=== PATIENT | male | born 1985 | race Caucasian/White ===

== ENCOUNTER 2017-12-08 10:09 | Emergency (ER) | payer SELFPAY ==
[~2017-12-08] VITALS: Ht 175.3 cm; Wt 76.0 kg
[~2017-12-08 10:09] MED LIST: AMOX875T PO; CHLO.12%30 SSP; IBUP800T23 PO; TRAM50 PO
[2017-12-08 10:11] VITALS: BP 124/65; PULSE 58; RESP 16; TEMP 97.8; O2SAT 97
[2017-12-08] MEDS ORDERED: oxyCODONE/ACETAMINOPHEN 5 MG/325 MG TAB PO ONE (10:30)
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
[2017-12-08] MEDS ORDERED: IBUP-232 PO (11:40)
[2017-12-08] MEDS ORDERED: PERC5TAB12 PO (11:40)
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
[2017-12-08] MEDS ORDERED: HYDROmorphone HCL PF 2 MG/ML VIAL IV PUSH ONE (11:45)
[2017-12-08 12:27] VITALS: BP 134/69
[2017-12-08 12:40] VITALS: BP 131/69
== END 2017-12-08 12:30 | disposition home or self-care (01) ==
LOC: NEPD 10:09
DX: S42.022A Displaced fracture of shaft of left clavicle, initial encounter for closed fracture (principal); F17.200 Nicotine dependence, unspecified, uncomplicated; Z98.890 Other specified postprocedural states; V28.0XXA Motorcycle driver injured in noncollision transport accident in nontraffic accident, initial encounter; Y92.014 Private driveway to single-family (private) house as the place of occurrence of the external cause
CPT/HCPCS: 73000; 96374; 99284; J1170

== ENCOUNTER 2018-05-15 18:41 | Emergency (ER) | payer SELFPAY ==
[~2018-05-15] VITALS: Ht 175.3 cm; Wt 76.0 kg
[~2018-05-15 18:41] MED LIST changes: +IBUP-232 PO; +PERC5TAB12 PO
[2018-05-15 18:50] VITALS: BP 147/89; PULSE 88; RESP 17; TEMP 98.1; O2SAT 97
[2018-05-15 19:35] LABS: BILIRUBIN, URINE NEG (NEG); BLOOD, URINE NEG (NEG); GLUCOSE,URINE NEG (NEG); KETONE, URINE NEG (NEG); MUCUS URINE FEW /lpf (OCC); NITRITE,URINE NEG (NEG); URINE COLOR YELLOW (YELLW/STRAW); URINE LEUKOCYTE ESTERASE NEG (NEG)
--- NOTE | 2018-05-15 20:15 | PD ---
HPI Chief Complaint: Complaint Time Seen by Provider: 19:46 Travel History International Travel<30 days: No Contact w/Intl Traveler<30days: No Traveled to known affect area: No History of Present Illness HPI 32-year-old male presents to emergency department with complaint of burning on urination that has been on and off for 1 week. Denies penile discharge, penile pain. Denies testicular pain or swelling. Denies hematuria, urinary frequency. Denies STD exposure. Denies abdominal pain, fever, vomiting. Has not taken any medication or trying treatments to alleviate his symptoms. 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 No known aggravating or relieving factors. Symptoms are mild in severity. No primary care provider. No known allergies. Denies significant past medical history. Has no other medical complaints. No other modifying factors or associated signs and symptoms. PFSH Past Medical History Musculoskeletal: Yes (FOOT FRACTURE) Past Surgical History Genitourinary Surgery: Yes ( LETICIA HERNIA AND UMBILICAL HERNIA REPAIR AGE 7) Social History Alcohol Use: No Tobacco Use: Yes (2-3 packs a day.) Substance Use: Yes (Significant Hx; Alcohol, Nicotine, Cocaine, Benzos, Marijuanna.) Allergies-Medications (Allergen,Severity, Reaction): Coded Allergies: No Known Allergies (Verified , 09/25/14) Reported Meds & Prescriptions Reported Meds & Active Scripts Active Ibuprofen 600 Mg Tab 600 Mg PO Q8H PRN Percocet (Oxycodone-Acetaminophen) 5-325 mg Tab 2 Tab PO Q6H PRN Ultram (Tramadol HCl) 50 Mg Tab 1 Tab PO Q6 PRN FOR PAIN Ibuprofen 800 Mg Tab 800 Mg PO TID PRN Peridex Oral Rinse (Chlorhexidine Gluconate) 0.12 % Amy 15 Ml SSP BID 10 Days Amoxil (Amoxicillin) 875 Mg Tab 875 Mg PO BID 10 Days Review of Systems Except as stated in HPI: all other systems reviewed are Neg Physical Exam Narrative GENERAL: Well-nourished, well-developed male patient, in no acute distress SKIN: Warm and dry. No rash. HEAD: Atraumatic. Normocephalic. EYES: Pupils equal and round. No scleral icterus. No injection or drainage. ENT: Mucosa pink and moist. NECK: Trachea midline. CARDIOVASCULAR: Regular rate RESPIRATORY: No accessory muscle use. GASTROINTESTINAL: Abdomen soft, non-tender, nondistended. Hepatic and splenic margins not palpable. Bowel sounds are active 4 quadrants. Bladder nontender and nondistended. MUSCULOSKELETAL: No obvious deformities. No clubbing. No cyanosis. No edema. BACK: No CVA tenderness NEUROLOGICAL: Awake and alert. Oriented 3. No obvious cranial nerve deficits. Motor grossly within normal limits. Normal speech. Moves all extremities. 5/5 strength to all extremities. PSYCHIATRIC: Appropriate mood and affect; insight and judgment normal. Data Data Last Documented VS Vital Signs Date Time Temp Pulse Resp B/P (MAP) Pulse Ox O2 Delivery O2 Flow Rate FiO2 05/15/18 18:50 98.1 88 17 147/89 (108) 97 Orders Orders Urinalysis - C+S If Indicated (05/15/18 18:55) Gc And Chlamydia Pcr (05/15/18 19:47) Labs Laboratory Tests Test 05/15/18 19:00 Urine Color YELLOW Urine Turbidity CLOUDY Urine pH 5.0 Urine Specific [place] 1.030 Urine Protein NEG mg/dL Urine Glucose (UA) NEG mg/dL Urine Ketones NEG mg/dL Urine Occult Blood NEG Urine Nitrite NEG Urine Bilirubin NEG Urine Urobilinogen 4.0 OR GREATER mg/dL Urine Leukocyte Esterase NEG Urine Mucus FEW /lpf Microscopic Urinalysis Comment CULT NOT INDICATED MDM Medical Decision Making Medical Screen Exam Complete: Yes Emergency Medical Condition: Yes Medical Record Reviewed: Yes Differential Diagnosis Dysuria, UTI, dehydration, urethritis Narrative Course 32-year-old male with dysuria. He denies penile discharge, pain, testicular pain, swelling. No known exposure to STD. Urinalysis ordered in triage and is without signs of infection. Chlamydia and gonorrhea pending. Will wait for chlamydia and gonorrhea to result for treatment, if needed. Instructed patient to follow up with primary care provider. Patient verbalizes understanding and agreement with treatment plan. Patient is medically cleared and stable for discharge. Discussed reasons to return to the emergency department. Patient agrees with treatment plan. The patients vital signs are stable and the patient is stable for outpatient follow-up and treatment. Patient discharged home, stable and in no acute distress. Diagnosis Primary Impression: Burning with urination Referrals: [facility] Primary Care Physician Patient Instructions: Dysuria (ED), General Instructions Additional Instructions: Drink plenty of fluids Follow-up with [facility] Follow-up with primary care provider Return to the emergency department immediately with worsening of symptoms Med/Other Pt SpecificInfo: No Change to Meds, No Meds Exist/No RX given Disposition: 01 DISCHARGE HOME Condition: Stable Nadya Pal May 15, 2018 20:15
== END 2018-05-15 20:37 | disposition home or self-care (01) ==
LOC: NEPK 18:41
DX: R30.0 Dysuria (principal); F17.200 Nicotine dependence, unspecified, uncomplicated; F12.90 Cannabis use, unspecified, uncomplicated; F14.90 Cocaine use, unspecified, uncomplicated; F19.90 Other psychoactive substance use, unspecified, uncomplicated
CPT/HCPCS: 81001; 87491; 87591; 99283